=== PATIENT | female | born 1980 | race Caucasian/White ===

== ENCOUNTER 2022-08-15 00:41 | Day surgery (SDC) | payer OTHER, SELFPAY ==
[2022-08-14 09:25] VITALS: BMI 37.2
--- NOTE | 2022-08-14 09:31 | PC.NURSE ---
Report to the Outpatient Waiting Room, entrance under the green pavilion located off [facility], at time 0815 on date 08/15/22. Planned Procedure Time: 1015. Time changes happen often and if your time is changed the preop area will call you the afternoon before. - You and your visitor will be asked to self-screen and do not enter if you have any COVID symptoms. - We encourage only one visitor and NO visitors under age 16 are allowed at this time. Your visitor will receive communication by the phone number that is given day of service. - The patient visitor is requested to social distance or may leave the building when not with patient due to restrictions. - A mask is OPTIONAL within the hospital. Patients may have clear liquids (water, carbonated beverages, clear teas, apple juice) until 3 hours prior to surgery with a maximum of 20 ounces. - No food from midnight until time of surgery - Infants may have breast milk until 4 hours before surgery, formula 6 hours prior to surgery. - Children will be allowed to drink immediately following surgery. If applicable, please bring a bottle or sippy cup to assist with drinking. Juice, water, soda, and popsicles are readily available. For infants on formula, please bring formula the day of surgery. Pacifiers are allowed. Take the following medications with a SIP of water the morning of surgery: INHALERS, AUGMENTIN, BUPROPION, CELEXA, GABAPENTIN Medications to discontinue per physician: N/A Date to take last dose: N/A Please no make-up, nail chinese, hairspray, perfume, deodorant, or body powder the day of surgery. No jewelry (including any body piercings) or valuables the day of surgery, leave them at home. Please take a shower or bath the night before, or the morning of, surgery with an antibacterial soap. Wear comfortable, loose fitting clothing. - Jewelry must be removed prior to entering the operating room. Rings and piercings that are not removed may be cut off. - The hospital will not accept responsibility for valuables. - Please leave all valuables, including medications, at home the day of surgery. If you are going home after surgery, a licensed pizza driver must drive you home. - NO public transportation without another adult. - We recommend that an adult stay with you for 24 hours following discharge. - We also recommend that you do not drive, make important decision, drink alcoholic beverages, or take any drugs that were not prescribed by your health care provider for at least 24 hours after your discharge time. Follow any additional instructions given to you from your surgeon. If you or anyone in your household have experienced Covid symptoms in the past week, please notify your surgeon or the nurse liaison at the phone number below for possible testing. Telephone instructions given to PT - DANIEL HERNANDEZ and asked if any additional questions and then verbalized understanding. Patient advised to call surgeon office or pre surgery nurse liaison [phone] if any additional questions.
--- NOTE | 2022-08-14 09:34 | PC.NURSE ---
Pt states she went to the ER on Sunday for tooth pain. She was prescribed a 10 day course of Augmentin at that time for a tooth infection until she can see a dentist next week. Pt states pain and swelling are improving since starting the antibiotic. Pt was encouraged to call Dr. Brown's office to report ER visit and prescription - pt verbalizes understanding.
--- NOTE | 2022-08-14 14:04 | WPDANESEPPF ---
Anes - Initial Pre Proc Eval Procedure: Operation Date: 08/15/22 10:15 Proposed Procedures p Diagnostic Laparoscopy, Bilateral Laparoscopic Salpingectomy - Jailyn Brown DO Date/Time: 08/14/22 14:04 Surgeon: Jailyn Brown DO Pre Op Diagnosis: desires sterilization Patient Data Age: 42 Gender: F Height: 1.6 m Weight: 95.25 kg Allergies Allergy/AdvReac Type Severity Reaction Status Date / Time meloxicam Allergy Other Verified 08/15/22 07:51 sulfamethoxazole Allergy Hives Verified 08/15/22 07:51 [From Bactrim] trimethoprim [From Bactrim] Allergy Hives Verified 08/15/22 07:51 Home Medications Medication Instructions Recorded Confirmed Type albuterol sulfate 90 mcg/actuation 1 inh inhalation Q4H PRN 08/14/22 08/14/22 History aerosol inhaler Bronchospasm amoxicillin 875 mg-potassium 1 tablet PO Q12H 08/14/22 08/14/22 History clavulanate 125 mg tablet budesonide-formoterol HFA 160 2 puff inhalation Q12H 08/14/22 08/14/22 History mcg-4.5 mcg/actuation aerosol inhaler (Symbicort) bupropion HCl 150 mg 24 hr tablet, 150 mg PO QAM 08/14/22 08/14/22 History extended release citalopram 40 mg tablet (Celexa) 40 mg PO DAILY 08/14/22 08/14/22 History gabapentin 300 mg capsule 300 mg PO TID 08/14/22 08/14/22 History montelukast 10 mg tablet 10 mg PO HS 08/14/22 08/14/22 History (Singulair) pantoprazole 20 mg tablet,delayed 20 mg PO DAILY PRN Heartburn 08/14/22 08/14/22 History release acetaminophen 500 mg tablet 1,000 mg PO Q6H PRN fever or pain 08/15/22 Rx #30 tabs hydrocodone 5 mg-acetaminophen 325 1 tablet PO Q6H PRN pain #4 tabs 08/15/22 Rx mg tablet ibuprofen 600 mg tablet 600 mg PO Q6H PRN fever or pain 08/15/22 Rx #30 tabs Patient hx anesthesia problems: none Family hx anesthesia problems: none Results Review: All pre-operative results and documents have been reviewed as part of the pre-operative evaluation. [facility]LY [facility] Past Medical History Medical History (Updated 08/15/22 @ 09:43 by Jailyn Brown DO) Asthma Chronic GERD Depression Engages in vaping Obesity SVT (supraventricular tachycardia) s/p ablation 2010 Social History Social History Smoking packs per day: 0.5 Smoking cigarettes per day: 10.0 Years smoked: 10 Smoking pack-years: 5.00 Smoking status: Current every day smoker Tobacco type: e-cigarettes/vaping Smoking end date: 03/18/22 Additional smoking assessment comments: QUIT CIGARETTES, NOW VAPING Alcohol intake: current Drinks per week: 2 Substance use: current Substance use type: marijuana Living arrangements: with family Spiritual care concerns: No Anes - Eval Final PreProcedure Day of Procedure 08/14/22 14:04 Patient weight: obese Heart: regular rate and rhythm Lungs: clear to auscultation and normal air movement Airway: Mallampati scale class II Neurological: alert and oriented Last oral intake: >/= 8 hours ASA classification: III Emergent: no Anesthetic plan: proceed Anesthesia type and monitoring: general ETT Results Review: All pre-operative results and documents have been reviewed as part of the pre-operative evaluation. Informed Consent: The patient's anesthetic plan and its attendant risks and benefits were discussed with the patient/family/POA. Questions were solicited and answers provided to the satisfaction of the patient/family/POA.
[2022-08-15] VITALS (8 sets, daily range): BP systolic 95–126; BP diastolic 48–92; PULSE 60–90; RESP 16–20; TEMP 36.7–36.9; O2SAT 98–100
[2022-08-15] MEDS: ACETAMINOPHEN 500 MG TABLET 1000 MG PO (08:14)
[2022-08-15] MEDS: LACTATED RINGERS 1,000 ML 30 ML IV CONT ×2 (08:27→10:56)
[2022-08-15 09:20] LABS: Barbiturate Screen Urine Negative (Negative); Benzodiazepines Screen Urine Negative (Negative)
[2022-08-15 09:22] LABS: Amphetamine Screen Urine Negative (Negative); Cannabinoid Screen Urine Positive (Negative); Cocaine Screen Urine Negative (Negative); Methadone Screen Urine Negative (Negative); Opiate Screen Urine Negative (Negative); Phencyclidine Screen Urine Negative (Negative)
--- NOTE | 2022-08-15 09:41 | WPDHPUPDATE1 ---
History and Physical Update Update Date/Time: 08/15/22 09:41 History and Physical has been reviewed, including an updated exam of the patient. There are NO changes in the patient's condition. Risks, benefits, and alternatives have been discussed and questions answered. Patient agrees to proceed with procedure.
--- NOTE | 2022-08-15 09:41 | PM.IMHP ---
H&P: HPI History of Present Illness Date/Time: 08/15/22 09:41 Chief Complaint: I'm here to have my tubes out Narrative: Deena presents for diagnostic laparoscopy, bilateral salpingectomy requesting permanent sterilization Review of Systems Review of Systems: All systems reviewed & are unremarkable except as noted in HPI and below Constitutional: Constitutional: Reports as per HPI [facility] Past Medical History Medical History (Updated 08/15/22 @ 09:43 by Jailyn Brown DO) Asthma Chronic GERD Depression Engages in vaping Obesity SVT (supraventricular tachycardia) s/p ablation 2010 Social History Social History Smoking packs per day: 0.5 Smoking cigarettes per day: 10.0 Years smoked: 10 Smoking pack-years: 5.00 Smoking status: Current every day smoker Tobacco type: e-cigarettes/vaping Smoking end date: 03/18/22 Additional smoking assessment comments: QUIT CIGARETTES, NOW VAPING Alcohol intake: current Drinks per week: 2 Substance use: current Substance use type: marijuana Living arrangements: with family Spiritual care concerns: No Meds Home Medications and Allergies Home Medications Medication Instructions Recorded Confirmed Type albuterol sulfate 90 mcg/actuation 1 inh inhalation Q4H PRN 08/14/22 08/14/22 History aerosol inhaler Bronchospasm amoxicillin 875 mg-potassium 1 tablet PO Q12H 08/14/22 08/14/22 History clavulanate 125 mg tablet budesonide-formoterol HFA 160 2 puff inhalation Q12H 08/14/22 08/14/22 History mcg-4.5 mcg/actuation aerosol inhaler (Symbicort) bupropion HCl 150 mg 24 hr tablet, 150 mg PO QAM 08/14/22 08/14/22 History extended release citalopram 40 mg tablet (Celexa) 40 mg PO DAILY 08/14/22 08/14/22 History gabapentin 300 mg capsule 300 mg PO TID 08/14/22 08/14/22 History montelukast 10 mg tablet 10 mg PO HS 08/14/22 08/14/22 History (Singulair) pantoprazole 20 mg tablet,delayed 20 mg PO DAILY PRN Heartburn 08/14/22 08/14/22 History release Allergies Allergy/AdvReac Type Severity Reaction Status Date / Time meloxicam Allergy Other Verified 08/15/22 07:51 sulfamethoxazole Allergy Hives Verified 08/15/22 07:51 [From Bactrim] trimethoprim [From Bactrim] Allergy Hives Verified 08/15/22 07:51 Vital Signs Vital Signs - 24 hr 08/15/22 08:29 Temperature 36.9 C Pulse Rate 66 Respiratory Rate 16 Blood Pressure 119/70 Pulse Oximetry 100 Oxygen Delivery Room Air Exam Const: General: comfortable and no acute distress Resp: Effort & Inspection: normal respiratory effort Auscultation: clear to auscultation bilaterally Cardio: Rate: regular rate Rhythm: regular rhythm GI: GI Palp: Yes Soft to palpation Auscultation: normal bowel sounds Skin: General skin exam: normal color and no rashes or lesions noted Wounds: no wounds Neuro: General: gait normal Speech: normal speech Motor exam (neuro): 5/5 motor strength present throughout Assessment and Plan Assessment and plan (1) Sterilization: Code(s): Z30.2 - Encounter for sterilization Status: Acute Plan Desires permanent sterilization Diagnostic laparoscopy, bilateral salpingectomy
[2022-08-15] MEDS: KETOROLAC 30 MG/ML VIAL (*BKC) IV PUSH (10:47)
[2022-08-15] MEDS: BUPIVACAINE/EPINEPHRINE 0.25% 50 ML VIAL 30 ML INFILTRATE (10:47)
--- NOTE | 2022-08-15 10:50 | P.OP_ITS ---
Procedure Note - Detailed Date of Procedure 08/15/22 Pre-op Diagnosis desires sterilization Post-op Diagnosis Same Procedure Performed Diagnostic laparoscopy, bilateral salpingectomy. Surgeon Jailyn Brown, DO Anesthesia General Indications Undesired fertility, desires permanent sterilization Findings Normal appearing vulva and vaginal canal, anterior LEEP position and medium- sized cervix. Internally, the pelvic organs were unremarkable. The bowels aida dder and liver appeared normal. Description of Procedure The patient was taken to the operating room where she was placed under general anesthesia. She was prepped and draped in the normal sterile fashion in a dorsal lithotomy position. No preoperative antibiotics were indicated. After a time-out was performed, a speculum was placed in the vagina and the cervix was visualized. The anterior lip was grasped with a single-tooth tenaculum and the cervix was dilated up to accommodate a Kroner uterine manipulator. The uterus was sounded to 8-1/2 cm. The manipulator was placed and the tenaculum and speculum were removed. Gloves were changed and attention was then turned to the abdomen. Skin above the umbilicus was grasped with 2 penetrating towel clamps and injected with local. A small incision was made and a Veress needle was introduced. Saline water drop test was performed to confirm intraperitoneal placement. The abdomen was insufflated to a filling pressure of 15 mmHg. The Veress needle was then replaced with a 5 mm Optiview trocar. The trocar was inserted under direct visualization. Survey of the abdomen revealed no evidence of bowel or vascular injury upon entry. The patient was then placed in steep Trendelenburg position. Additional 5 mm trocars were placed in the right and left lower quadrants under direct visualization. The uterus was elevated and the bladder flap and posterior cul-de-sac were inspected. No abnormalities were found. The right tube was elevated and was cauterized and transected off using the LigaSure. There were some paratubal cysts which prevented it from being delivered through the trocar so was placed on the anterior lower uterine segment for retrieval later. In the identical fashion, the left tube was cauterized and transected off. The tubes were then both removed through the the trocars by removing them with the trocars intact. The surgical pedicles were reinspected and found to be hemostatic. The instruments and the trocars removed and the CO2 gas was allowed to escape. The skin was closed with 4-0 Monocryl in a subcuticular fashion and covered with Dermabond. The uterine manipulator was removed. The patient was taken to the recovery room in stable condition. All instrument and sponge counts were correct at the conclusion of the procedure. Estimated Blood Loss 10 IV Fluids 1,000 Drains No Packing No Pathology Yes Complications No immediate complications Condition Stable Disposition PACU
[2022-08-15] MEDS: fentaNYL CITRATE INJ (*CRX) 100 MCG/2 ML VIAL 25 MCG IV PUSH ×4 (11:28→11:53)
== END 2022-08-15 12:55 | disposition home or self-care (01) ==
PROVIDERS: Visit Provider Obstetrics & Gynecology Gynecologic Oncology
PROC: (CPT 49320; principal; 2022-08-15 10:15)
DX: Z30.2 Encounter for sterilization (principal); N83.8 Other noninflammatory disorders of ovary, fallopian tube and broad ligament; J45.909 Unspecified asthma, uncomplicated; K21.9 Gastro-esophageal reflux disease without esophagitis; F32.A Depression, unspecified; E66.9 Obesity, unspecified; Z68.37 Body mass index [BMI] 37.0-37.9, adult; F17.290 Nicotine dependence, other tobacco product, uncomplicated; F12.90 Cannabis use, unspecified, uncomplicated; Z79.51 Long term (current) use of inhaled steroids; Z79.899 Other long term (current) drug therapy
CPT/HCPCS: 58661; 80307; 88302; A9270; J0330; J1100; J1170; J1885; J2250; J2405; J2704; J3010; J7120